=== PATIENT | male | born 1975 | race Hispanic/Latino ===

== ENCOUNTER 2018-06-03 20:24 | Emergency (ER) | payer OTHER ==
[2018-06-03] MEDS: OXcarbazepine 300 MG TAB PO (22:54)
== END 2018-06-03 23:10 | disposition home or self-care (01) ==
LOC: M ED 20:24
DX: Z76.0 Encounter for issue of repeat prescription (principal); Z87.891 Personal history of nicotine dependence
CPT/HCPCS: 99283

== ENCOUNTER 2018-07-16 20:45 | Emergency (ER) | payer OTHER | END 2018-07-17 01:36 | disposition left against medical advice (07) | LOC: M ED 20:45 | DX: Z53.29 Procedure and treatment not carried out because of patient's decision for other reasons (principal) ==

== ENCOUNTER → 2020-01-06 | Outpatient (REF) ==
[~2020-01-06] MED LIST: HYDR-3713 PO; KEPP1TAB2 PO; MOTR200T44 PO; TRIL1TAB PO; [UNRECOGNIZED DRUG - CODE] PO
== END ==
LOC: M LAB 09:04
PROVIDERS: ATTEND Nurse Practitioner Adult Health
DX: Z02.89 Encounter for other administrative examinations (principal)